=== PATIENT | male | born 1995 | race Caucasian/White ===

== ENCOUNTER → 2017-03-04 | Outpatient (CLI) | payer OTHER ==
[2017-03-04 12:46] LABS: ALBUMIN/GLOBULIN RATIO 1.11 (1.00-1.93); ALKALINE PHOSPHATASE 67 U/L (45-117); ALT/SGPT 46 U/L (12-78); ANION GAP 4 MEQ/L (8-16); AST/SGOT 34 U/L (15-37); BILIRUBIN,TOTAL 0.6 MG/DL (0.2-1.0); BLOOD UREA NITROGEN 14 MG/DL (7-18); CALCIUM LEVEL 9.3 MG/DL (8.5-10.1); CARBON DIOXIDE LEVEL 32 MEQ/L (21-32); CHLORIDE LEVEL 106 MEQ/L (98-107); CHOLESTEROL LEVEL 143 MG/DL (<200); CREATININE FOR GFR 1.17 MG/DL (0.70-1.30); GLOMERULAR FILTRATION RATE > 60.0 (>60); GLUCOSE, FASTING 80 MG/DL (70-105); POTASSIUM SERUM 4.5 MEQ/L (3.5-5.1); SODIUM LEVEL 142 MEQ/L (136-145); TOTAL PROTEIN 7.6 GM/DL (6.4-8.2); TRIGLYCERIDES LEVEL 145 MG/DL (<150)
--- NOTE | 2017-03-04 13:12 | REP ---
Left shoulder three views : There is no fracture or dislocation. Mineralization and joint spaces are normal. There are no calcifications or foreign bodies. Impression: Negative left shoulder . Signed by Nick Huntley MD 03/04/2017 12:06 P
== END ==
LOC: M LAB 03-03 16:10
PROVIDERS: ATTEND Physician Assistant
DX: M24.812 Other specific joint derangements of left shoulder, not elsewhere classified (principal)

== ENCOUNTER 2018-08-20 14:31 | Emergency (ER) | payer MEDICAID, OTHER ==
[~2018-08-20] VITALS: Ht 180.3 cm; Wt 104.5 kg
[2018-08-20] MEDS ORDERED: NS 1,000 ML IV ONE (15:00)
[2018-08-20] MEDS ORDERED: DICYCLOMINE INJ 20MG/2ML (J0500) IM ONE (15:00)
[2018-08-20] MEDS ORDERED: ONDANSETRON 4MG/2ML VIAL (J2405) IV ONE (15:00)
[2018-08-20 15:07] LABS: BASO # 0.1 10^3/uL (0.0-0.2); BASO % 0.3 % (0.0-1.0); EOS # 0.1 10^3/uL (0.0-0.50); EOS % 0.5 % (0.0-3.0); HEMATOCRIT 43.7 % (42.0-52.0); HEMOGLOBIN 15.5 g/dl (13.5-17.5); LYMPH % 6.9 % (24.0-44.0); MEAN CORPUSCULAR HGB CONC 35.5 g/dl (32.0-36.5); MEAN CORPUSCULAR VOLUME 90.1 fl (80.0-96.0); MONO # 0.9 10^3/uL (0.0-0.8); MONO % 5.9 % (0.0-5.0); NEUTROPHILS # 12.7 10^3/uL (1.8-7.7); NEUTROPHILS % 86.1 % (36.0-66.0); PLATELET COUNT, AUTOMATED 226 10^3/uL (150-450); RED BLOOD COUNT 4.85 10^6/uL (4.30-6.10); WHITE BLOOD COUNT 14.8 10^3/uL (4.0-10.0)
[2018-08-20 15:36] LABS: ALBUMIN 4.2 GM/DL (3.2-5.2); ALT/SGPT 34 U/L (12-78); BILIRUBIN,DIRECT 0.2 MG/DL (0.0-0.2); BILIRUBIN,TOTAL 0.8 MG/DL (0.2-1.0); BLOOD UREA NITROGEN 16 MG/DL (7-18); CALCIUM LEVEL 8.7 MG/DL (8.5-10.1); CARBON DIOXIDE LEVEL 28 MEQ/L (21-32); CHLORIDE LEVEL 107 MEQ/L (98-107); CREATININE FOR GFR 1.06 MG/DL (0.70-1.30); GLOMERULAR FILTRATION RATE > 60.0 (>60); GLUCOSE, FASTING 89 MG/DL (70-100); LIPASE 107 U/L (73-393); SODIUM LEVEL 140 MEQ/L (136-145); TOTAL PROTEIN 7.7 GM/DL (6.4-8.2)
[2018-08-20] MEDS ORDERED: DICY10CA13 PO (15:51)
[2018-08-20] MEDS ORDERED: ONDA4TAB6 PO (15:51)
[2018-08-20 15:58] VITALS: BP 106/50
== END 2018-08-20 16:00 | disposition home or self-care (01) ==
LOC: M ED 14:31
DX: K52.9 Noninfective gastroenteritis and colitis, unspecified (principal)
CPT/HCPCS: 80048; 80076; 83690; 85025; 96372; 96374; 99284; J0500; J2405

== ENCOUNTER → 2020-08-04 | Outpatient (CLI) | payer SELFPAY ==
[~2020-08-04] MED LIST: DICY10CA13 PO; ONDA4TAB6 PO
== END ==
LOC: M LABSMTC 09:59
PROVIDERS: ATTEND Pediatrics
DX: Z20.822 Contact with and (suspected) exposure to COVID-19 (principal)

== ENCOUNTER → 2020-08-13 | Outpatient (CLI) | payer SELFPAY | LOC: M LABSMTC 11:18 | PROVIDERS: ATTEND Pediatrics | DX: Z20.822 Contact with and (suspected) exposure to COVID-19 (principal) ==

== ENCOUNTER 2021-10-13 14:01 | Emergency (ER) | payer MEDICAID, OTHER, SELFPAY ==
[~2021-10-13] VITALS: Ht 180.3 cm; Wt 112.2 kg
[2021-10-13] MEDS ORDERED: KETOROLAC 30 MG/ML 1ML VIAL IV ONE (16:15)
[2021-10-13] MEDS ORDERED: BENZONATATE 100MG CAPSULE PO ONE (16:15)
[2021-10-13] MEDS ORDERED: NS 1,000 ML IV ONE (16:15)
[2021-10-13] MEDS ORDERED: ISOVUE-370 76% 100ML VIAL As Ordered ONE (16:42)
[2021-10-13] MEDS: ALBUTEROL 90 MCG/ACT 8GM HFA INHALER INH SCH ×3 (16:43→17:29)
[2021-10-13 16:51] LABS: BASO # 0.1 10^3/uL (0.0-0.2); BASO % 0.8 % (0.0-1.0); EOS # 0.3 10^3/uL (0.0-0.5); HEMATOCRIT 47.2 % (42.0-52.0); HEMOGLOBIN 16.5 g/dl (13.5-17.5); LYMPH # 1.8 10^3/uL (1.5-5.0); LYMPH % 20.4 % (24.0-44.0); MEAN CORPUSCULAR HEMOGLOBIN 31.3 pg (27.0-33.0); MEAN CORPUSCULAR VOLUME 89.4 fl (80.0-96.0); MONO # 0.8 10^3/uL (0.0-0.8); MONO % 9.4 % (2.0-8.0); NEUTROPHILS # 5.8 10^3/uL (1.5-8.5); NEUTROPHILS % 66.2 % (36.0-66.0); PLATELET COUNT, AUTOMATED 248 10^3/uL (150-450); RED BLOOD COUNT 5.28 10^6/uL (4.30-6.10); WHITE BLOOD COUNT 8.8 10^3/uL (4.0-10.0)
[2021-10-13 17:14] LABS: ERYTHROCYTE SEDIMENTATION RATE 14 mm/hr (0-15)
[2021-10-13 17:44] LABS: CK-MB VALUE MASS < 1.0 NG/ML (<3.6); CPK CREATINE PHOSPHOKINASE 289 U/L (39-308); MB/CK RELATIVE INDEX 0.35 (< OR =4)
[2021-10-13 17:57] LABS: RSV AMPLIFICATION NEGATIVE (NEGATIVE)
[2021-10-13] MEDS ORDERED: AMOXICILLIN 500 MG CAP PO ONE (18:45)
[2021-10-13 18:46] VITALS: BP 132/81
[2021-10-13] MEDS ORDERED: PROAAER10 INH (18:52)
[2021-10-13] MEDS ORDERED: AMOX500C PO (18:52)
[2021-10-13] MEDS ORDERED: BENZ200C70 PO (18:52)
== END 2021-10-13 19:26 | disposition home or self-care (01) ==
LOC: M ED 14:01
DX: J18.9 Pneumonia, unspecified organism (principal)
CPT/HCPCS: 71275; 80047; 82550; 82553; 83605; 85025; 85652; 86140; 87631; 93005; 94640; 96361; 96374; 99284; J1885; Q9967

== ENCOUNTER 2022-09-04 11:42 | Emergency (ER) | payer OTHER ==
[~2022-09-04] VITALS: Ht 180.3 cm; Wt 110.2 kg
[~2022-09-04 11:42] MED LIST changes: +AMOX500C PO; +BENZ200C70 PO; +PROAAER10 INH
[2022-09-04] MEDS ORDERED: ONDANSETRON 4MG 2ML VIAL IV ONE (12:25)
[2022-09-04] MEDS ORDERED: KETOROLAC 30 MG/ML 1ML VIAL IV ONE (12:25)
[2022-09-04] MEDS ORDERED: NS 1,000 ML IV ONE ×2 (12:25→14:35)
[2022-09-04 12:51] LABS: BASO # 0.1 10^3/uL (0.0-0.2); BASO % 0.6 % (0.0-1.0); EOS # 0.1 10^3/uL (0.0-0.5); EOS % 0.7 % (0.0-3.0); HEMATOCRIT 49.6 % (42.0-52.0); HEMOGLOBIN 17.4 g/dl (13.5-17.5); LYMPH # 0.9 10^3/uL (1.5-5.0); MEAN CORPUSCULAR HEMOGLOBIN 31.6 pg (27.0-33.0); MEAN CORPUSCULAR HGB CONC 35.1 g/dl (32.0-36.5); MONO # 0.8 10^3/uL (0.0-0.8); MONO % 4.4 % (2.0-8.0); NEUTROPHILS # 15.6 10^3/uL (1.5-8.5); NEUTROPHILS % 88.9 % (36.0-66.0); PLATELET COUNT, AUTOMATED 296 10^3/uL (150-450); RED BLOOD COUNT 5.51 10^6/uL (4.30-6.10); WHITE BLOOD COUNT 17.6 10^3/uL (4.0-10.0)
[2022-09-04] MEDS ORDERED: ISOVUE-370 76% 100ML VIAL As Ordered ONE (12:56)
[2022-09-04 13:31] LABS: ALBUMIN 4.3 G/DL (3.2-5.2); BILIRUBIN,DIRECT 0.2 MG/DL (<0.4); BILIRUBIN,TOTAL 0.6 MG/DL (0.3-1.2); TOTAL PROTEIN 7.9 G/DL (5.7-8.2)
[2022-09-04] MEDS ORDERED: ONDA4TAB6 PO (15:37)
[2022-09-04] MEDS ORDERED: ACETAMINOPHEN 500 MG TAB PO ONE (15:40)
[2022-09-04] MEDS ORDERED: PIPERACILLIN/TAZOBACTAM SOD 3.375 GM in D5W MINI-BAG PLUS 50 ML IV ONE (17:05)
[2022-09-04] MEDS ORDERED: NS 1,310 ML in IV 1 EA IV ONE (17:10)
[2022-09-04 19:51] VITALS: BP 130/75
[2022-09-04] MEDS ORDERED: ONDANSETRON 4MG ORAL DISINTEGRATING TAB PO ONE (20:10)
== END 2022-09-04 20:21 | disposition home or self-care (01) ==
LOC: M ED 11:42
DX: A08.4 Viral intestinal infection, unspecified (principal); E86.0 Dehydration; D72.829 Elevated white blood cell count, unspecified; R16.1 Splenomegaly, not elsewhere classified
CPT/HCPCS: 71046; 74177; 80047; 80076; 81001; 83605; 83690; 85025; 87486; 87507; 87581; 87633; 87798; 96361; 96365; 96366; 96375; 99284; J1885; J2405; J2543

== ENCOUNTER 2023-03-24 14:09 | Emergency (ER) | payer OTHER ==
[~2023-03-24] VITALS: Ht 180.3 cm; Wt 119.1 kg
[~2023-03-24 14:09] MED LIST changes: +DICY-61 PO; -DICY10CA13 PO
[2023-03-24] MEDS ORDERED: ACET-907 PO (15:09)
[2023-03-24 15:42] LABS: BASO # 0.1 10^3/uL (0.0-0.2); BASO % 0.6 % (0.0-1.0); EOS # 0.3 10^3/uL (0.0-0.5); HEMATOCRIT 41.6 % (42.0-52.0); HEMOGLOBIN 14.3 g/dl (13.5-17.5); LYMPH # 2.5 10^3/uL (1.5-5.0); LYMPH % 21.6 % (24.0-44.0); MEAN CORPUSCULAR HGB CONC 34.4 g/dl (32.0-36.5); MEAN CORPUSCULAR VOLUME 90.2 fl (80.0-96.0); MONO % 8.9 % (2.0-8.0); NEUTROPHILS # 7.5 10^3/uL (1.5-8.5); NEUTROPHILS % 65.6 % (36.0-66.0); PLATELET COUNT, AUTOMATED 220 10^3/uL (150-450); RED BLOOD COUNT 4.61 10^6/uL (4.30-6.10); WHITE BLOOD COUNT 11.5 10^3/uL (4.0-10.0)
[2023-03-24 16:08] LABS: ALBUMIN 3.8 G/DL (3.2-5.2); BILIRUBIN,DIRECT 0.1 MG/DL (<0.4); BILIRUBIN,TOTAL 0.5 MG/DL (0.3-1.2); TOTAL PROTEIN 7.2 G/DL (5.7-8.2)
[2023-03-24] MEDS ORDERED: KETOROLAC 30 MG/ML 1ML VIAL IV ONE (17:00)
[2023-03-24] MEDS ORDERED: BACT800T5 PO (17:03)
[2023-03-24] MEDS ORDERED: BACTRIM 160MG/800MG DS TAB PO ONE (17:05)
[2023-03-24] MEDS ORDERED: NS 1,000 ML IV ONE (17:10)
[2023-03-24 17:40] VITALS: BP 131/79; TEMP 98.3; O2SAT 99
[2023-03-24 19:22] LABS: GC DNA AMPLIFICATION NEGATIVE (NEGATIVE)
== END 2023-03-24 17:44 | disposition home or self-care (01) ==
LOC: M ED 14:09
DX: N45.2 Orchitis (principal)
CPT/HCPCS: 76857; 76870; 80047; 80076; 81001; 83690; 85025; 87661; 87810; 87850; 93976; 96374; 99284; J1885

== ENCOUNTER 2023-06-07 14:27 | Emergency (ER) | payer OTHER ==
[~2023-06-07] VITALS: Ht 180.3 cm; Wt 109.7 kg
[~2023-06-07 14:27] MED LIST changes: +ACET-907 PO; +BACT800T5 PO
[2023-06-07 15:23] LABS: BASO % 0.3 % (0.0-1.0); EOS # 0.1 10^3/uL (0.0-0.5); EOS % 0.5 % (0.0-3.0); HEMATOCRIT 45.5 % (42.0-52.0); LYMPH # 0.7 10^3/uL (1.5-5.0); LYMPH % 5.3 % (24.0-44.0); MEAN CORPUSCULAR HEMOGLOBIN 31.9 pg (27.0-33.0); MEAN CORPUSCULAR HGB CONC 35.2 g/dl (32.0-36.5); MEAN CORPUSCULAR VOLUME 90.6 fl (80.0-96.0); MONO # 0.6 10^3/uL (0.0-0.8); MONO % 4.6 % (2.0-8.0); NEUTROPHILS # 12.2 10^3/uL (1.5-8.5); NEUTROPHILS % 89.1 % (36.0-66.0); PLATELET COUNT, AUTOMATED 256 10^3/uL (150-450); RED BLOOD COUNT 5.02 10^6/uL (4.30-6.10); WHITE BLOOD COUNT 13.7 10^3/uL (4.0-10.0)
[2023-06-07] MEDS ORDERED: ISOVUE-370 76% 100ML VIAL As Ordered ONE (15:38)
[2023-06-07 15:49] LABS: ALBUMIN 4.1 G/DL (3.2-5.2); BILIRUBIN,DIRECT 0.3 MG/DL (<0.4); TOTAL PROTEIN 7.6 G/DL (5.7-8.2)
[2023-06-07 15:58] LABS: RSV AMPLIFICATION NEGATIVE (NEGATIVE)
[2023-06-07] MEDS ORDERED: ACETAMINOPHEN 500 MG TAB PO ONE (19:05)
[2023-06-07] MEDS ORDERED: ONDA4TAB6 PO (21:20)
[2023-06-07 21:45] VITALS: BP 123/76; TEMP 99.7; O2SAT 97
== END 2023-06-07 22:30 | disposition home or self-care (01) ==
LOC: M ED 14:27
DX: A08.11 Acute gastroenteropathy due to Norwalk agent (principal)
CPT/HCPCS: 74177; 80047; 80076; 81001; 83690; 85025; 87486; 87507; 87581; 87631; 87633; 87798; 99284; Q9967

== ENCOUNTER 2023-10-13 09:09 | Emergency (ER) | payer OTHER ==
[~2023-10-13] VITALS: Ht 180.3 cm; Wt 108.2 kg
[2023-10-13 09:40] LABS: BASO # 0.1 10^3/uL (0.0-0.2); BASO % 0.7 % (0.0-1.0); EOS # 0.4 10^3/uL (0.0-0.5); EOS % 3.6 % (0.0-3.0); HEMATOCRIT 42.2 % (42.0-52.0); HEMOGLOBIN 14.6 g/dl (13.5-17.5); LYMPH # 2.3 10^3/uL (1.5-5.0); LYMPH % 23.3 % (24.0-44.0); MEAN CORPUSCULAR HEMOGLOBIN 31.9 pg (27.0-33.0); MEAN CORPUSCULAR HGB CONC 34.6 g/dl (32.0-36.5); MEAN CORPUSCULAR VOLUME 92.1 fl (80.0-96.0); MONO # 0.7 10^3/uL (0.0-0.8); MONO % 6.9 % (2.0-8.0); NEUTROPHILS # 6.5 10^3/uL (1.5-8.5); NEUTROPHILS % 65.1 % (36.0-66.0); PLATELET COUNT, AUTOMATED 233 10^3/uL (150-450); RED BLOOD COUNT 4.58 10^6/uL (4.30-6.10); WHITE BLOOD COUNT 9.9 10^3/uL (4.0-10.0)
[2023-10-13 09:58] LABS: LIPASE 32 U/L (12-53)
[2023-10-13 10:00] LABS: ALBUMIN 3.9 G/DL (3.2-5.2); ALKALINE PHOSPHATASE 67 U/L (46-116); ALT/SGPT 26 U/L (7.0-40); AST/SGOT 17 U/L (<34); BILIRUBIN,DIRECT 0.1 MG/DL (<0.4); BILIRUBIN,TOTAL 0.4 MG/DL (0.3-1.2); BLOOD UREA NITROGEN 14 MG/DL (9-23); CALCIUM LEVEL 8.7 MG/DL (8.5-10.1); CARBON DIOXIDE LEVEL 28 MMOL/L (20-31); CHLORIDE LEVEL 109 MMOL/L (98-107); CREATININE FOR GFR 0.92 MG/DL (0.70-1.30); GLOMERULAR FILTRATION RATE > 60.0 (>60); GLUCOSE, FASTING 92 MG/DL (60-100); POTASSIUM SERUM 3.7 MMOL/L (3.5-5.1); SODIUM LEVEL 140 MMOL/L (136-145); TOTAL PROTEIN 7.1 G/DL (5.7-8.2)
[2023-10-13] MEDS: BISACODYL 10MG SUPP PR ONE (10:56)
[2023-10-13] MEDS: NS 1,000 ML IV ONE (12:25)
[2023-10-13] MEDS ORDERED: ISOVUE-370 76% 100ML VIAL As Ordered ONE (12:30)
[2023-10-13] MEDS ORDERED: AMOX875T2 PO (14:44)
[2023-10-13] MEDS ORDERED: PRED20TA PO (14:44)
[2023-10-13 14:49] LABS: C REACTIVE PROTEIN QUANTITATIV < 0.40 MG/DL (<1.0)
[2023-10-13] MEDS: AUGMENTIN 875 MG TAB PO ONE (14:52)
[2023-10-13] MEDS: methylPREDNISolone 125MG 2ML VIAL IV ONE (14:52)
[2023-10-13 14:55] LABS: ERYTHROCYTE SEDIMENTATION RATE 24 mm/hr (0-15)
[2023-10-13 15:08] VITALS: BP 133/82; TEMP 99; O2SAT 99
== END 2023-10-13 15:10 | disposition home or self-care (01) ==
LOC: M ED 09:09
DX: K52.9 Noninfective gastroenteritis and colitis, unspecified (principal); Z79.2 Long term (current) use of antibiotics; Z79.1 Long term (current) use of non-steroidal anti-inflammatories (NSAID); Z79.52 Long term (current) use of systemic steroids
CPT/HCPCS: 74019; 74177; 80048; 80076; 83690; 85025; 85652; 86140; 96374; 99284; J2930; Q9967

== ENCOUNTER → 2024-07-04 | Outpatient (REF) | payer OTHER ==
[~2024-07-04] MED LIST changes: +AMOX875T2 PO; +ONDA-282 PO; -ONDA4TAB6 PO; +PRED20TA PO
[2024-07-04 18:59] LABS: BASO # 0.1 10^3/uL (0.0-0.2); BASO % 0.8 % (0.0-1.0); EOS # 0.2 10^3/uL (0.0-0.5); EOS % 2.1 % (0.0-3.0); HEMATOCRIT 43.5 % (42.0-52.0); LYMPH # 2.2 10^3/uL (1.5-5.0); LYMPH % 30.7 % (24.0-44.0); MEAN CORPUSCULAR HEMOGLOBIN 31.9 pg (27.0-33.0); MEAN CORPUSCULAR HGB CONC 34.5 g/dl (32.0-36.5); MEAN CORPUSCULAR VOLUME 92.6 fl (80.0-96.0); MONO # 0.5 10^3/uL (0.0-0.8); MONO % 6.8 % (2.0-8.0); NEUTROPHILS # 4.2 10^3/uL (1.5-8.5); NEUTROPHILS % 59.3 % (36.0-66.0); PLATELET COUNT, AUTOMATED 244 10^3/uL (150-450); WHITE BLOOD COUNT 7.2 10^3/uL (4.0-10.0)
[2024-07-04 19:19] LABS: ERYTHROCYTE SEDIMENTATION RATE 17 mm/hr (0-15)
[2024-07-04 19:26] LABS: THYROID STIMULATING HORMONE 1.471 uIU/ML (0.55-4.78)
[2024-07-04 19:27] LABS: C REACTIVE PROTEIN QUANTITATIV < 0.50 MG/DL (<1.0)
[2024-07-04 19:28] LABS: ALBUMIN 4.1 G/DL (3.2-5.2); ALKALINE PHOSPHATASE 68 U/L (40-129); ALT/SGPT 36 U/L (7.0-40); AST/SGOT 22 U/L (<34); BILIRUBIN,TOTAL 0.5 MG/DL (0.3-1.2); BLOOD UREA NITROGEN 9 MG/DL (9-23); CALCIUM LEVEL 9.5 MG/DL (8.5-10.1); CARBON DIOXIDE LEVEL 30 MMOL/L (20-31); CHLORIDE LEVEL 106 MMOL/L (98-107); CHOLESTEROL LEVEL 165 MG/DL (<200); CHOLESTEROL RISK RATIO 4.41 (<5); CREATININE FOR GFR 0.86 MG/DL (0.70-1.30); GLOMERULAR FILTRATION RATE > 60.0 (>60); GLUCOSE, FASTING 79 MG/DL (60-100); HDL CHOLESTEROL 37.4 MG/DL (>40); LDL CHOLESTEROL 101.6 MG/DL (<100); NON-HDL-C 127.6 MG/DL; POTASSIUM SERUM 4.2 MMOL/L (3.5-5.1); SODIUM LEVEL 143 MMOL/L (136-145); TOTAL PROTEIN 7.4 G/DL (5.7-8.2); TRIGLYCERIDES LEVEL 130 MG/DL (<150)
[2024-07-04 20:00] LABS: HEMOGLOBIN A1c 4.7 % (4.0-6.0)
== END ==
LOC: M LAB REF 16:12
PROVIDERS: ATTEND Nurse Practitioner Family
DX: R19.7 Diarrhea, unspecified (principal); E66.3 Overweight; Z11.9 Encounter for screening for infectious and parasitic diseases, unspecified; R53.83 Other fatigue; E66.9 Obesity, unspecified

== ENCOUNTER 2024-09-27 08:27 | Emergency (ER) | payer OTHER ==
[~2024-09-27] VITALS: Ht 180.3 cm; Wt 101.8 kg
[2024-09-27] MEDS ORDERED: ONDA-282 PO (11:20)
[2024-09-27] MEDS: ONDANSETRON 4MG ORAL DISINTEGRATING TAB PO ONE (11:20)
[2024-09-27] MEDS ORDERED: AMOX875T PO (11:20)
[2024-09-27 11:24] VITALS: BP 120/78; TEMP 97.1; O2SAT 98
== END 2024-09-27 11:31 | disposition home or self-care (01) ==
LOC: M ED 08:27
DX: J02.0 Streptococcal pharyngitis (principal); Z79.1 Long term (current) use of non-steroidal anti-inflammatories (NSAID); Z79.2 Long term (current) use of antibiotics; Z79.52 Long term (current) use of systemic steroids; Z79.899 Other long term (current) drug therapy

== ENCOUNTER 2025-02-13 17:37 | Emergency (ER) | payer OTHER ==
[~2025-02-13] VITALS: Ht 180.3 cm; Wt 100.6 kg
[~2025-02-13 17:37] MED LIST changes: +AMOX875T PO
[2025-02-13] MEDS: diphenhydrAMINE 50 MG/ML VIAL IV ONE (20:14)
[2025-02-13] MEDS: NS (Normal Saline) 0.9% 1,000 ML IV ONE (20:15)
[2025-02-13] MEDS: KETOROLAC 30 MG/ML 1 ML VIAL IV ONE (20:15)
[2025-02-13 22:33] VITALS: BP 105/61; TEMP 98.1; O2SAT 97
== END 2025-02-13 22:36 | disposition home or self-care (01) ==
LOC: M ED 17:37
DX: R51.9 Headache, unspecified (principal); K21.9 Gastro-esophageal reflux disease without esophagitis; F12.10 Cannabis abuse, uncomplicated; Z79.1 Long term (current) use of non-steroidal anti-inflammatories (NSAID)
CPT/HCPCS: 70450; 96361; 96374; 96375; 99284; J1200; J1885; J2765

== ENCOUNTER → 2025-02-20 | Outpatient (REF) | payer OTHER ==
[2025-02-20 15:08] LABS: BASO # 0.0 10^3/uL (0.0-0.2); BASO % 0.6 % (0.0-1.0); EOS # 0.1 10^3/uL (0.0-0.5); EOS % 1.6 % (0.0-3.0); LYMPH # 2.3 10^3/uL (1.5-5.0); LYMPH % 37.0 % (24.0-44.0); MONO # 0.5 10^3/uL (0.0-0.8); MONO % 7.4 % (2.0-8.0); NEUTROPHILS # 3.3 10^3/uL (1.5-8.5); NEUTROPHILS % 53.2 % (36.0-66.0); PLATELET COUNT, AUTOMATED 243 10^3/uL (150-450)
[2025-02-20 15:13] LABS: CALCIUM LEVEL 9.3 MG/DL (8.5-10.1); CARBON DIOXIDE LEVEL 30 MMOL/L (20-31); CHLORIDE LEVEL 105 MMOL/L (98-107); CREATININE FOR GFR 0.92 MG/DL (0.70-1.30); GLOMERULAR FILTRATION RATE > 90.0 (>60); MAGNESIUM LEVEL 2.1 MG/DL (1.8-2.4); POTASSIUM SERUM 4.4 MMOL/L (3.5-5.1); SODIUM LEVEL 144 MMOL/L (136-145)
[2025-02-20 15:17] LABS: ERYTHROCYTE SEDIMENTATION RATE 9 mm/hr (0-15); VITAMIN B12 LEVEL 471 PG/ML (211-911)
== END ==
LOC: M LAB REF 14:23
PROVIDERS: ATTEND Nurse Practitioner Family
DX: R51.9 Headache, unspecified (principal)